=== PATIENT | female | born 1980 | race Caucasian/White ===

== ENCOUNTER 2016-11-22 10:16 | Emergency (ER) | payer BC ==
[~2016-11-22] VITALS: Ht 157.5 cm; Wt 66.5 kg
[2016-11-22 10:24] VITALS: BP 140/86; PULSE 63; RESP 14; TEMP 99; O2SAT 99
[2016-11-22 10:30] VITALS: O2SAT 99
--- NOTE | 2016-11-22 10:58 | PD ---
HPI Chief Complaint: Chest Pain Time Seen by Provider: 10:27 Travel History International Travel<30 days: No Contact w/Intl Traveler<30days: No Traveled to known affect area: No History of Present Illness HPI 36yo F with no PMH presents to the ED with c/o cold sensation across her yesterday that started yesterday. [place] a little nauseous and lightheaded. Pt states it also goes to her left shoulder and had some tingling in her left hand. Denies any fever, cough, sob, vomiting, abdominal pain. Denies any cig smoking or cocaine use. Denies any family history of sudden cardiac . PFSH Past Medical History Medical History: Denies Significant Hx Tetanus Vaccination: > 5 Years Influenza Vaccination: No ?: Not Past Surgical History Surgical History: No Previous Surgery Social History Alcohol Use: Yes (WEEKENDS) Tobacco Use: No Substance Use: No Allergies-Medications (Allergen,Severity, Reaction): Coded Allergies: Codeine (Verified Allergy, Severe, Hives, 11/22/16) Penicillin (Verified Allergy, Severe, Hives, 11/22/16) Reported Meds & Prescriptions Reported Meds & Active Scripts Active No Active Prescriptions or Reported Medications Review of Systems Except as stated in HPI: all other systems reviewed are Neg Physical Exam Narrative GENERAL: 36yo F not in distress. SKIN: Focused skin assessment warm/dry. HEAD: Atraumatic. Normocephalic. CARDIOVASCULAR: Regular rate and rhythm. No murmur appreciated. CHEST WALL: No erythema or rash. Mild ttp left chest wall. No crepitus. RESPIRATORY: No accessory muscle use. Clear to auscultation. Breath sounds equal bilaterally. GASTROINTESTINAL: Abdomen soft, non-tender, nondistended. MUSCULOSKELETAL: No obvious deformities. No clubbing. No cyanosis. No edema. NEUROLOGICAL: Awake and alert. No obvious cranial nerve deficits. Motor grossly within normal limits. Normal speech. PSYCHIATRIC: Appropriate mood and affect; insight and judgment normal. Data Data Last Documented VS Vital Signs Date Time Temp Pulse Resp B/P Pulse Ox O2 Delivery O2 Flow Rate FiO2 11/22/16 11:23 115/65 119/72 11/22/16 10:31 99 Room Air 11/22/16 10:24 99.0 63 14 Orders Electrocardiogram (11/22/16 10:28) Basic Metabolic Panel (Bmp) (11/22/16 10:28) Ckmb (Isoenzyme) Profile (11/22/16 10:28) Complete Blood Count With Diff (11/22/16 10:28) Magnesium (Mg) (11/22/16 10:28) Prothrombin Time / Inr (Pt) (11/22/16 10:28) Act Partial Throm Time (Ptt) (11/22/16 10:28) Troponin I (11/22/16 10:28) Chest, Single Ap (11/22/16 10:28) Ecg Monitoring (11/22/16 10:28) Bilateral Bp Monitoring (11/22/16 10:28) Iv Access Insert/Monitor (11/22/16 10:28) Oximetry (11/22/16 10:28) Oxygen Administration (11/22/16 10:28) Ed Urine Pregnancytest Poc (11/22/16 10:56) Ibuprofen (Motrin) (11/22/16 11:15) Labs Laboratory Tests Test 11/22/16 11:20 White Blood Count 9.0 TH/MM3 Red Blood Count 4.36 MIL/MM3 Hemoglobin 12.4 GM/DL Hematocrit 37.9 % Mean Corpuscular Volume 86.9 FL Mean Corpuscular Hemoglobin 28.4 PG Mean Corpuscular Hemoglobin 32.7 % Concent Red Cell Distribution Width 12.2 % Platelet Count 179 TH/MM3 Mean Platelet Volume 8.8 FL Neutrophils (%) (Auto) 67.7 % Lymphocytes (%) (Auto) 24.5 % Monocytes (%) (Auto) 5.8 % Eosinophils (%) (Auto) 1.5 % Basophils (%) (Auto) 0.5 % Neutrophils # (Auto) 6.2 TH/MM3 Lymphocytes # (Auto) 2.2 TH/MM3 Monocytes # (Auto) 0.5 TH/MM3 Eosinophils # (Auto) 0.1 TH/MM3 Basophils # (Auto) 0.0 TH/MM3 CBC Comment DIFF FINAL Differential Comment Prothrombin Time 10.4 SEC Prothromb Time International 0.9 RATIO Ratio Activated Partial 27.6 SEC Thromboplast Time Sodium Level 140 MEQ/L Potassium Level 3.7 MEQ/L Chloride Level 104 MEQ/L Carbon Dioxide Level 27.9 MEQ/L Anion Gap 8 MEQ/L Blood Urea Nitrogen 7 MG/DL Creatinine 0.70 MG/DL Estimat Glomerular Filtration 95 ML/MIN Rate Random Glucose 100 MG/DL Calcium Level 9.1 MG/DL Magnesium Level 1.9 MG/DL Total Creatine Kinase 74 U/L Troponin I LESS THAN 0.02 NG/ML MDM Medical Decision Making Medical Screen Exam Complete: Yes Emergency Medical Condition: Yes Interpretation(s) EKG: Sinus bradycardia at 52bpm. No ST segment elevation or depression. Differential Diagnosis Atypical chest pain vs. anxiety vs. musculoskeletal pain vs. costochondritis Narrative Course 36yo F with atypical chest pain. Pt has no cardiac risk factors and do not feel that this is cardiac. Labs reviewed, no leukocytosis. Troponin negative. CXR showed no acute disease. Pt given ibuprofen and reevaluated at bedside. States pain has improved. Urine negative. VS stable. Pt instructed to follow up with PMD and return to the ED if symptoms worsen. Diagnosis Primary Impression: Atypical chest pain Patient Instructions: General Instructions Departure Forms: Tests/Procedures Additional Instructions: Please follow up with your PMD in 2-3 days. Return to the ED if symptoms worsen. Med/Other Pt SpecificInfo: No Change to Meds Scripts No Active Prescriptions or Reported Meds Disposition: 01 DISCHARGE HOME Condition: Stable Malu Vargas DO November 22, 2016 10:58
[2016-11-22] MEDS ORDERED: IBUPROFEN 600 MG TAB PO ONE (11:15)
[2016-11-22 11:23] VITALS: BP_SYST 115; BP_SYST 119; BP_DIAS 65; BP_DIAS 72
[2016-11-22 11:26] LABS: AUTOMATED NEUTROPHIL # 6.2 TH/MM3 (1.8-7.7); BASOPHIL % 0.5 % (0.0-2.0); EOSINOPHIL # 0.1 TH/MM3 (0-0.4); EOSINOPHIL % 1.5 % (0.0-4.0); HEMATOCRIT 37.9 % (35.0-46.0); HEMO FLAGS DIFF FINAL; LYMPH % 24.5 % (9.0-44.0); LYMPHOCYTE # 2.2 TH/MM3 (1.0-4.8); MEAN CELL VOLUME 86.9 FL (80.0-100.0); MEAN CORPUSCULAR HEMOGLOBIN 28.4 PG (27.0-34.0); MEAN CORPUSCULAR HGB CONC 32.7 % (32.0-36.0); MONO % 5.8 % (0.0-8.0); NEUT % 67.7 % (16.0-70.0); PLATELET COUNT 179 TH/MM3 (150-450); RED BLOOD COUNT 4.36 MIL/MM3 (4.00-5.30); RED CELL DISTRIBUTION WIDTH 12.2 % (11.6-17.2)
--- NOTE | 2016-11-22 11:28 | RADHPO ---
EXAM DATE/TIME: 11/22/2016 11:08 [facility] COMPARISON: No previous studies available for comparison. INDICATIONS : Left upper chest and left arm pain MEDICAL HISTORY : None. SURGICAL HISTORY : None. ENCOUNTER: Initial ACUITY: 1 day PAIN SCORE: 7/10 LOCATION: Left upper chest TECH NOTE: shield used, denies pregnancyJONESCATBETTY ALFORD MR#[id number] :81 Exam date/desc:November 22, 2016 CHEST SINGLE AP FINDINGS: A single view of the chest demonstrates the lungs to be symmetrically aerated without evidence of mas s, infiltrate or effusion. The cardiomediastinal contours are unremarkable. Osseous structures are intact. CONCLUSION: No acute disease. Rohit Reyes MD on November 22, 2016 at 11:26 Board Certified Radiologist. This report was verified electronically.
[2016-11-22 11:37] LABS: CHLORIDE 104 MEQ/L (98-107); POTASSIUM 3.7 MEQ/L (3.5-5.1); SODIUM (NA) 140 MEQ/L (136-145)
[2016-11-22 11:40] LABS: ANION GAP 8 MEQ/L (5-15); BICARBONATE 27.9 MEQ/L (21.0-32.0); BLOOD UREA NITROGEN 7 MG/DL (7-18); MAGNESIUM 1.9 MG/DL (1.5-2.5)
[2016-11-22 11:42] LABS: APTT (PATIENT) 27.6 SEC (24.3-30.1); INTERNATIONAL NORMALIZED RATIO 0.9 RATIO; PROTHROMBIN TIME - PATIENT 10.4 SEC (9.8-11.6)
[2016-11-22 11:43] LABS: GLOMERULAR FILTRATION RATE 95 ML/MIN (>89)
[2016-11-22 11:54] LABS: CREATINE KINASE 74 U/L (26-192)
[2016-11-22 12:48] VITALS: BP 115/61; PULSE 68; RESP 16; O2SAT 98
--- NOTE | 2016-11-23 14:41 | EKG ---
Date Performed: 11/22/2016 Time Performed: 10:19:14 PTAGE: 36 years EKG: Sinus bradycardia Normal ECG except for rate NO PREVIOUS TRACING DOCTOR: Catarino Mcclure Interpretating Date/Time 11/23/2016 14:38:47
== END 2016-11-22 12:58 | disposition home or self-care (01) ==
LOC: PHED 10:16
DX: R07.89 Other chest pain (principal); R00.1 Bradycardia, unspecified; R11.0 Nausea; R42 Dizziness and giddiness
CPT/HCPCS: 71010; 80048; 82550; 83735; 84484; 84703; 85025; 85610; 85730; 93005